=== PATIENT | male | born 1940 | race Two or more races ===

== ENCOUNTER 2019-06-04 12:12 | Inpatient (IN) | payer MEDICARE, OTHER ==
[~2019-06-04] VITALS: Ht 177.8 cm; Wt 86.2 kg
--- NOTE | 2019-06-04 12:27 | NUR ---
PT REC'D TO ER [facility]IA [facility] . 5 DAYS WEAKNESS. IV I8G LEFT AC LABS DRAWN SENT TO LAB . NO FEVER WENT URGENT CARE H/H LOW AWAITING EVALUATION BY ER PROVIDER.
[2019-06-04 12:44] LABS: BASOPHILS # (AUTO) 0.1 /CMM (0.0-0.2); BASOPHILS % (AUTO) 0.9 % (0.0-2.0); EOSINOPHILS % (AUTO) 0.9 % (0.0-6.0); HEMATOCRIT 21 % (39-51); LYMPHOCYTES # (AUTO) 1.8 /CMM (0.8-4.8); LYMPHOCYTES % (AUTO) 28.6 % (20.0-44.0); MEAN CORPUSCULAR HGB CONC 31 g/dl (31.0-36.0); MEAN CORPUSCULAR VOLUME 72 fL (80-96); MONOCYTES # (AUTO) 0.5 /CMM (0.1-1.30); MONOCYTES % (AUTO) 7.1 % (2.0-12.0); NEUTROPHILS % (AUTO) 62.5 % (43.0-81.0); PLATELET COUNT (AUTO) 143 /CMM (150-450); RED BLOOD CELL COUNT(AUTO) 2.88 MIL/uL (4.5-6.0); WHITE BLOOD COUNT (AUTO) 6.4 K/uL (4.3-11.0)
[2019-06-04 12:45] LABS: HEMOGLOBIN 6.3 g/dL (13.5-17.5)
[2019-06-04 12:52] LABS: CALCIUM, SERUM 8.2 mg/dL (8.5-10.1); CARBON DIOXIDE 27 mmol/L (21-32); CHLORIDE 104 mmol/L (98-107); CREATININE 2.2 mg/dL (0.6-1.3); GLUCOSE 140 mg/dL (74-106); POTASSIUM 3.9 mmol/L (3.5-5.1); SODIUM SERUM 140 mmol/L (136-145); UREA NITROGEN, BLOOD 36 mg/dL (7-18)
[2019-06-04 13:05] LABS: ALANINE AMINOTRANSFERASE 21 U/L (12-78); ALBUMIN 3.8 g/dL (3.4-5.0); ALKALINE PHOSPHATASE 51 U/L (46-116); ASPARTATE AMINOTRANSFERASE 13 U/L (15-37); B-TYPE NATRIURETIC PEPTIDE 20 PG/ML (0-125); BILIRUBIN,TOTAL 0.3 mg/dL (0.2-1.0); TOTAL PROTEIN, SERUM 6.7 g/dL (6.4-8.2)
[2019-06-04] MEDS ORDERED: LISI-603 PO (13:20)
[2019-06-04] MEDS ORDERED: ALLO300T2 PO (13:20)
[2019-06-04] MEDS ORDERED: ALPR0.5T8 PO (13:20)
[2019-06-04] MEDS ORDERED: AMLO10TA7 PO (13:20)
[2019-06-04 15:24] LABS: EOSINOPHILS % (MANUAL) 1 % (0-4); LYMPHOCYTES % (MANUAL) 27 % (16-48); MONOCYTES % (MANUAL) 5 % (0-11.0); NEUTROPHILS % (MANUAL) 67 (42-76)
--- NOTE | 2019-06-04 15:47 | NUR ---
CALLED NURSING SUP FOR BED
--- NOTE | 2019-06-04 17:21 | NUR ---
REPORT GIVEN TO CARI BRAR FOR CONTINUITY OF CARE ON TELE FLOOR
[2019-06-04 18:00] VITALS: BP 110/56
[2019-06-04] MEDS ORDERED: ZOLPIDEM TARTRATE 5 MG TABLET PO PRN (18:00)
[2019-06-04] MEDS ORDERED: ALPRAZOLAM 0.5 MG TABLET PO PRN (18:00)
[2019-06-04] MEDS ORDERED: ACETAMINOPHEN 325 MG TABLET PO PRN (18:00)
--- NOTE | 2019-06-04 18:03 | NUR ---
COMMERCIAL AIRLINE PILOT ADMITTING NOTE Received patient from ER. A/O x4, showing no signs of acute distress or SOB, 100% on RA. Vital signs T 97.0 BP 110/56 HR 76 RR 16. Tele monitor SR 77. Patient has no complaints of pain at this time. IV line in the LAC #18g is clean and intact. Skin assessed and skin is intact. Bed is in lowest position, side rails x2 in upright position, call light is within reach and patient is aware of how to call for assistance when needed. Safety precautions enforced. Will endorse to PM shift.
--- NOTE | 2019-06-04 18:07 | NUR ---
SCHOLASTIC APTITUDE TEST GRADER NOTE Received call from Julissa from lab. Patient is positive antibody blood screen. They will order blood from [place] and stated it might take about 3 hours or longer. Will endorse to PM shift.
--- NOTE | 2019-06-04 19:00 | NUR ---
RN NOTE Endorsed to Hayde BRAR for ARIEL.
[2019-06-04] MEDS: IV 1/2NS 1000 ML 1,000 ML IV PRN ×2 (19:15→23:46)
[2019-06-04 19:31] LABS: THYROID STIMULATING HORMONE 1.379 uIU/mL (0.358-3.74)
--- NOTE | 2019-06-04 19:46 | NUR ---
CHANGE CONTROL COORDINATOR NOTES PATIENT RECEIVED LAYING BED, ALERT AND ORIENTED X 4. PATIENT ON ROOM AIR, WITH NO SIGNS OF SOB AND RESPIRATORY DISTRESS, AND WITH EVEN NON-LABORED BREATHING. PATIENT ON ARBORIST REPRESENTATIVE, SINUS RHYTHM, 60'S. PATIENT IV ACCESS IN PLACE, PATENT AND INTACT ON LEFT AC, RUNNING 1/2 NORMAL SALINE AT 75ml/hr. PROVIDED COMFORT MEASURES TO PATIENT, PATIENT PRESENTS NO SIGNS OF PAIN OR DISCOMFORT AT THIS TIME. SAFETY PRECAUTIONS IN PLACE WITH THE BED IN LOWEST POSITION, BILATERAL SIDE RAILS UP, BED LOCKED, BED ALARM ON, AND CALL LIGHT WITHIN EASY REACH OF THE PATIENT. WILL CONTINUE TO MONITOR PATIENT.
[2019-06-04 20:25] VITALS: BP 111/50
[2019-06-04] MEDS: PANTOPRAZOLE 40 MG TABLET.DR PO SCH (20:58)
[2019-06-04 22:28] VITALS: BP 114/53
--- NOTE | 2019-06-04 22:28 | NUR ---
TRACTOR MECHANIC HELPER NOTES STARTED BLOOD TRANSFUSION AT 2228. PROVIDED COMFORT MEASURES TO PATIENT, AND WILL MONITOR PATIENT.
[2019-06-04 22:43] VITALS: BP 101/41
--- NOTE | 2019-06-04 22:55 | NUR ---
ENGINEERING AND OPERATIONS DIRECTOR NOTES PATIENT HAS BEEN INFUSING FOR 15 MINUTES, VITALS SIGNS ORAL TEMP, 99.3, HEART RATE 76, RESPIRATORY RATE 18, BLOOD PRESSURE 101/41. ADMINISTERED PRN PO ACETAMINOPHEN 650mg. CHARGE NURSE AWARE. WILL CONTINUE TO MONITOR PATIENT.
[2019-06-04 23:13] VITALS: BP 108/52
[2019-06-05] VITALS (12 sets, daily range): BP systolic 19–125; BP diastolic 45–63
--- NOTE | 2019-06-05 01:11 | NUR ---
SHIPPING AND RECEIVING ASSISTANT NOTES PATIENT HAS FINISH 1 UNIT OF BLOOD TRANSFUSION AT 0111. PATIENT DOES NOT COMPLAIN OF ANY SOB, RESPIRATORY DISCOMFORT, PATIENT STATES NO CHILLS, AND PATIENT STATES NO PAIN, AND WILL CONTINUE TO MONITOR PATIENT.
--- NOTE | 2019-06-05 06:18 | NUR ---
PAPER FINAL INSPECTOR NOTES STARTED BLOOD TRANSFUSION AT THIS TIME, 617. PATIENT IS LAYING IN BED COMFORTABLY. VITAL SIGNS BLOOD PRESSURE 109/51, PULSE 71, RESPIRATORY RATE 18, ORAL TEMPERATURE 97.7. WILL CONTINUE TO MONITOR PATIENT.
--- NOTE | 2019-06-05 07:29 | NUR ---
PLASTICS HEAT WELDER NOTES PATIENT IN BED SLEEPING. EASILY AWAKEN BY NAME AND LIGHT TOUCH. ALERT AND ORIENTED X 4. PATIENT ON ROOM AIR WITH NO SIGNS OF RESPIRATORY DISTRESS PRESENT, NO SIGNS OF SOB AND WITH EVEN NON-LABORED BREATHING. PATIENT ON OFFICE RN, SINUS RHYTHM 80'S. PATIENT SKIN KEPT CLEAN AND DRY. PATIENT CURRENTLY RECEIVING 1 UNIT OF PACKED RBC's, DENIES ANY PAIN OR DISCOMFORT. IV ACCESS IN PLACE AND INTACT, 18 ON L AC. SAFETY PRECAUTIONS IN PLACE WITH BED LOCKED, BILATERAL SIDE RAILS UP, AND CALL LIGHT WITHIN EASY REACH OF THE PATIENT. WILL ENDORSE PLAN OF CARE TO UPCOMING DAYSHIFT NURSE.
[2019-06-05] MEDS ORDERED: ALLOPURINOL 100 MG TABLET PO SCH (09:00)
[2019-06-05] MEDS ORDERED: LISINOPRIL (20MG) 20 MG TABLET PO SCH (09:00)
[2019-06-05] MEDS ORDERED: AMLODIPINE BESYLATE 10 MG TABLET PO SCH (09:00)
[2019-06-05] MEDS: PANTOPRAZOLE 40 MG TABLET.DR PO SCH (09:12)
[2019-06-05] MEDS ORDERED: FERR325T23 PO (09:41)
[2019-06-05 13:07] LABS: BASOPHILS % (AUTO) 0.7 % (0.0-2.0); EOSINOPHILS % (AUTO) 1.2 % (0.0-6.0); HEMATOCRIT 25 % (39-51); HEMOGLOBIN 7.9 g/dL (13.5-17.5); LYMPHOCYTES # (AUTO) 1.5 /CMM (0.8-4.8); LYMPHOCYTES % (AUTO) 26.6 % (20.0-44.0); MEAN CORPUSCULAR HGB CONC 32 g/dl (31.0-36.0); MEAN CORPUSCULAR VOLUME 75 fL (80-96); MONOCYTES # (AUTO) 0.4 /CMM (0.1-1.30); NEUTROPHILS # (AUTO) 3.6 /CMM (1.8-8.9); NEUTROPHILS % (AUTO) 64.5 % (43.0-81.0); PLATELET COUNT (AUTO) 114 /CMM (150-450); WHITE BLOOD COUNT (AUTO) 5.5 K/uL (4.3-11.0)
[2019-06-05 13:16] LABS: CARBON DIOXIDE 26 mmol/L (21-32); CHLORIDE 107 mmol/L (98-107); CREATININE 1.6 mg/dL (0.6-1.3); GLUCOSE 106 mg/dL (74-106); POTASSIUM 3.9 mmol/L (3.5-5.1); SODIUM SERUM 141 mmol/L (136-145); UREA NITROGEN, BLOOD 21 mg/dL (7-18)
[2019-06-05] MEDS ORDERED: SOD FERRIC GLUC 125 MG in IV NS 0.9% 100 ML IV SCH (14:00)
--- NOTE | 2019-06-05 15:00 | NUR ---
Call made to dr. Corbin regarding if patient cleared for d/c . Per dr. Corbin he will call dr. Patricia to discuss pt's d/c
--- NOTE | 2019-06-05 15:48 | NUR ---
per dr. Patricia d/c patient to home, f/u with GI outpatient
[2019-06-05 16:02] LABS: BASOPHILS # (AUTO) 0.1 /CMM (0.0-0.2); BASOPHILS % (AUTO) 0.9 % (0.0-2.0); EOSINOPHILS % (AUTO) 1.2 % (0.0-6.0); HEMATOCRIT 25 % (39-51); HEMOGLOBIN 7.9 g/dL (13.5-17.5); LYMPHOCYTES # (AUTO) 1.2 /CMM (0.8-4.8); MEAN CORPUSCULAR HGB CONC 32 g/dl (31.0-36.0); MEAN CORPUSCULAR VOLUME 75 fL (80-96); MONOCYTES # (AUTO) 0.3 /CMM (0.1-1.30); MONOCYTES % (AUTO) 5.7 % (2.0-12.0); NEUTROPHILS # (AUTO) 3.9 /CMM (1.8-8.9); NEUTROPHILS % (AUTO) 71.2 % (43.0-81.0); PLATELET COUNT (AUTO) 111 /CMM (150-450); RED BLOOD CELL COUNT(AUTO) 3.28 MIL/uL (4.5-6.0); WHITE BLOOD COUNT (AUTO) 5.5 K/uL (4.3-11.0)
[2019-06-05 16:21] LABS: ALANINE AMINOTRANSFERASE 19 U/L (12-78); ALBUMIN 3.3 g/dL (3.4-5.0); ALKALINE PHOSPHATASE 46 U/L (46-116); ASPARTATE AMINOTRANSFERASE 16 U/L (15-37); BILIRUBIN,TOTAL 0.7 mg/dL (0.2-1.0); CALCIUM, SERUM 7.9 mg/dL (8.5-10.1); CARBON DIOXIDE 25 mmol/L (21-32); CHLORIDE 107 mmol/L (98-107); CREATININE 1.6 mg/dL (0.6-1.3); GLUCOSE 116 mg/dL (74-106); POTASSIUM 4.1 mmol/L (3.5-5.1); SODIUM SERUM 142 mmol/L (136-145); TOTAL PROTEIN, SERUM 6.2 g/dL (6.4-8.2); UREA NITROGEN, BLOOD 21 mg/dL (7-18)
[2019-06-05 16:23] LABS: CHOLESTEROL 117 mg/dL (<200); HDL CHOLESTEROL 23 mg/dL (40-60); LDL 70 mg/dL (0-99); TRIGLYCERIDES 257 mg/dL (30-150)
--- NOTE | 2019-06-05 19:00 | NUR ---
Patient cleared for discharge to home by MD. Patient awake alert and oriented x4, ambulatory , no skin issues. Patient received prescription and educated on s/e . patient received d/c instructions and will f/u with PCP and GI outpatient. Patient verbalized understanding. All needs attended. IV line removed and ID wrist bam\nds removed. Patient denies pain, dizziness or other discomfort. Patient safely transferred to [facility] where picked up by friend.
== END 2019-06-05 18:57 | disposition home or self-care (01) | DRG 206 ==
LOC: ER 12:17 → TELE 17:00
PROVIDERS: ADMIT Internal Medicine; ATTEND Internal Medicine
PROC: 30233N1 Transfusion of Nonautologous Red Blood Cells into Peripheral Vein, Percutaneous Approach (ICD-10-PCS; principal; 2019-06-04)
DX: M94.0 Chondrocostal junction syndrome [Tietze] (principal); N18.4 Chronic kidney disease, stage 4 (severe); M10.9 Gout, unspecified; I12.9 Hypertensive chronic kidney disease with stage 1 through stage 4 chronic kidney disease, or unspecified chronic kidney disease; D50.9 Iron deficiency anemia, unspecified; Z79.899 Other long term (current) drug therapy; N28.1 Cyst of kidney, acquired
CPT/HCPCS: 36415; 71045-TC; 80048-TC; 80053-TC; 80061-TC; 80076-TC; 82728-TC; 83540-TC; 83880; 84443-TC; 84484-TC; 85025-TC; 86850-TC; 86921-TC; 87081-TC; 93307-TC; G0378; J2916; J3490; J7030; J7050; P9016-BL